=== PATIENT | male | born 2005 | race Caucasian/White ===

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

== ENCOUNTER 2024-05-27 17:39 | Emergency (ER) | payer OTHER ==
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
[2024-05-27 18:04] LABS: Basophils # (A) 0.1 k/uL (0-0.2); Basophils % (A) 1 %; Eosinophils # (A) 0.2 k/uL (0-0.7); Eosinophils % (A) 2 %; HGB 16.3 gm/dL (13.0-17.5); Lymphocytes # (A) 3.9 k/uL (1.0-4.8); Lymphocytes % (A) 35 %; MCH 30.3 pg (25.0-35.0); MCHC 34.6 g/dL (31.0-37.0); MCV 87.6 fL (80.0-100.0); Mean Platelet Volume 7.7; Monocytes # (A) 0.5 k/uL (0-1.0); Monocytes % (A) 5 %; Neutrophils # (A) 6.3 k/uL (1.3-7.7); Neutrophils % (A) 56 %; Platelet Count 311 k/uL (150-450); RBC 5.37 m/uL (4.30-5.90); RDW 12.6 % (11.5-15.5); WBC 11.2 k/uL (4.0-11.0)
[2024-05-27 18:15] LABS: ALT 66 U/L (4-49); AST 42 U/L (17-59); African American GFR (CKD) >90 (>60 ml/min/1.73 sqM); Albumin 4.8 g/dL (3.5-5.0); Alcohol <10 mg/dL; Alkaline Phosphatase 74 U/L (38-126); Anion Gap 9 mmol/L; Blood Urea Nitrogen 23 mg/dL (9-20); Calcium 9.8 mg/dL (8.4-10.2); Carbon Dioxide 23 mmol/L (22-30); Chloride 108 mmol/L (98-107); Glucose 132 mg/dL (74-99); Non-African American GFR(CKD) >90 (>60 ml/min/1.73 sqM); Potassium 3.7 mmol/L (3.5-5.1); Sodium 140 mmol/L (137-145); Total Bilirubin 0.6 mg/dL (0.2-1.3); Total Protein 7.5 g/dL (6.3-8.2)
[2024-05-27 18:18] LABS: INR 1.1 (<1.2); Partial Thromboplastin Time 21.5 sec (22.0-30.0); Prothrombin Time 11.4 sec (10.0-12.5)
[2024-05-27] MEDS: SODIUM CHLORIDE 0.9% 1,000 ML IV STA (18:23)
[2024-05-27] MEDS: HYDROmorphone 1 MG/ML 1 ML SYRINGE IVP STA (18:23)
[2024-05-27] MEDS: DIPH,PERTUS(ACELL)TETVAC-LF 0.5 ML VIAL IM ONE (18:27)
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
[2024-05-27] MEDS: LORazepam 2 MG/ML INJ IV STA (19:34)
[2024-05-27] MEDS: KETOROLAC 15 MG/ML 1 ML VIAL IM STA (20:22)
[2024-05-27] MEDS: traMADol 50 MG STARTER PACK 3 TAB BTL PO STA (20:26)
[2024-05-27] MEDS: IBUPROFEN 600 MG STARTER PACK 4 TAB BTL PO STA (20:26)
[2024-05-27] MEDS: KETOROLAC 15 MG/ML 1 ML VIAL IVP STA (20:30)
[2024-05-27 21:54] LABS: Amphetamine Screen,Urine Not Detected (NotDetected); Barbiturate Screen,Urine Not Detected (NotDetected); Benzodiazepines Screen,Urine Not Detected (NotDetected); Cocaine Screen,Urine Not Detected (NotDetected); Methadone Screen, Urine Not Detected (NotDetected); Opiate Screen,Urine Detected (NotDetected); Oxycodone Screen, Urine Not Detected (NotDetected); Phencyclidine Screen,Urine Not Detected (NotDetected); Tricyclic Antidepressant,Urine Not Detected (NotDetected); Urn Cannabinoid Scrn Not Detected (NotDetected)
[2024-05-27 22:29] VITALS: BP 130/93; PULSE 99; RESP 18; TEMP 98.6
== END 2024-05-27 20:30 | disposition home or self-care (01) ==
LOC: EC 17:39
DX: S60.416A Abrasion of right little finger, initial encounter (principal); S70.319A Abrasion, unspecified thigh, initial encounter; S80.211A Abrasion, right knee, initial encounter; Z23 Encounter for immunization; V23.49XA Other motorcycle driver injured in collision with car, pick-up truck or van in traffic accident, initial encounter; Y92.410 Unspecified street and highway as the place of occurrence of the external cause
CPT/HCPCS: 36415; 86900; 86901; 80053; 83605; 84484; 85025; 85610; 85730; 86850; 80306; 73562; 72170; 73130; 71045; 72125; 70450; 71260; 74177; 90715; 99285; 90471; 96372; 96374; 96361; L0120; G0480; J1170; J1885; Q9967; 80320